=== PATIENT | female | born 1965 | race Caucasian/White ===

== ENCOUNTER 2021-05-18 10:37 | Outpatient (CLI) | payer MEDICARE, SELFPAY ==
--- NOTE | 2021-05-18 10:41 | MM_ITS ---
WS: [id number] BILATERAL DIGITAL SCREENING MAMMOGRAM WITH CAD CLINICAL INFORMATION: SCREENING HISTORY: Screening mammogram. No current complaints. COMPARISON: TECHNIQUE: Bilateral CC and MLO. FINDINGS: The breast are composed of extremely dense tissue, which can limit the detection of small underlying mass lesions. No suspicious focal mass, asymmetry, calcifications, or architectural distortion. No ev idence of malignancy. Stable clustered calcifications left breast. MM/[id number] IMPRESSION: BI-RADS: 2-Benign FOLLOW UP: 1 Year Follow-up Recommend return to annual screening mammography.
== END 2021-05-18 10:38 | disposition home or self-care (01) ==
LOC: RADSHAW 10:39
PROVIDERS: PCP Internal Medicine; Visit Provider Internal Medicine
DX: Z12.31 Encounter for screening mammogram for malignant neoplasm of breast (principal)
CPT/HCPCS: 77067

== ENCOUNTER 2022-07-02 12:43 | Outpatient (CLI) | payer MEDICARE, SELFPAY ==
--- NOTE | 2022-07-02 13:07 | MM_ITS ---
WS: [id number] BILATERAL 3D TOMOSYNTHESIS DIGITAL SCREENING MAMMOGRAPHY WITH CAD CLINICAL INFORMATION: SCREENING HISTORY: Screening mammogram. No current complaints. COMPARISON: May 18, 2021 TECHNIQUE: Bilateral CC and MLO views. FINDINGS: The breasts are composed of heterogeneous fibroglandular density tissue, which can limit the detectio n of small underlying mass lesions. No suspicious mass, asymmetry, calcifications, or architectural d istortion. No evidence of malignancy. Vascular calcification. MM/[place] [id number] IMPRESSION: BI-RADS: 2-Benign FOLLOW UP: 1 Year Follow-up Recommend return to annual screening mammography.
== END 2022-07-02 12:44 | disposition home or self-care (01) ==
LOC: RAD 12:45
PROVIDERS: PCP Internal Medicine; Visit Provider Internal Medicine
DX: Z12.31 Encounter for screening mammogram for malignant neoplasm of breast (principal)
CPT/HCPCS: 77063; 77067

== ENCOUNTER 2023-05-02 02:08 | Emergency (ER) | payer MEDICARE, SELFPAY ==
[2023-05-02] VITALS (8 sets, daily range): BP systolic 103–129; BP diastolic 62–72; PULSE 94–115; RESP 1–22; TEMP 37.9; O2SAT 95–100; BMI 20.1
--- NOTE | 2023-05-02 02:14 | XRR_ITS ---
PROCEDURE INFORMATION: Exam: XR Chest Exam date and time: 05/02/2023 2:41 AM Age: 58 years old Clinical indication: Pain; Shortness of breath; Chest pressure; Patient HX: C/O cp with SOB TECHNIQUE: Imaging protocol: Radiologic exam of the chest. Views: 1 view. COMPARISON: CT abdomen pelvis wo/w [id number] 05/22/2018 12:41 PM FINDINGS: Lungs: No CHF/pulmonary edema. The lungs appear somewhat hyperinflated, possibly related to COPD. Visible lungs appear essentially clear. Pleural spaces: No visible pneumothorax. No definite pleural fluid. Heart/Mediastinum: Heart size is within normal limits. Bones/joints: No significant acute finding. XR/XR chest 1V portable [id number] IMPRESSION: 1. No definite CHF or pneumonia. 2. Other findings discussed above.
--- NOTE | 2023-05-02 02:16 | ED_ITS ---
HPI - SOB/Dyspnea General: Chief Complaint: Shortness of Breath/Dyspnea Stated Complaint: Shortness of Breath Time Seen by Provider: 05/02/23 02:14 Source: patient and EMS Mode of arrival: EMS Limitations: no limitations History of Present Illness: HPI Narrative: 58-year-old female states that she has had some cough congestion low-grade fevers over the last 2 days states that tonight she is having some worsening shortness of breath states she feels like she cannot breathe due to her nasal congestion EMS and found her her oxygen was in the low 90s had wheezing they gave her breathing treatment Solu-Medrol in route she is feeling improved pulse ox is now 100% on room air. No vomiting or diarrhea. Associated symptoms: Deny abdominal pain, chest pain, fever(s), nausea or vomiting Review of Systems Const: Reports: body aches; Denies: fever(s), chills or change in appetite Eyes: Denies: eye discomfort ENMT: Reports: nasal congestion; Denies: throat pain or dental pain Card: Denies: chest pain Resp: Reports: dyspnea and non-productive cough GI: Denies: abdominal pain, nausea, vomiting or diarrhea Musc: Denies: neck pain or back pain Skin/Breast: Denies: rash Neuro: Denies: headache(s) PFSH ED PFSH: Medical History Constipation during Fibromyalgia Gastroesophageal reflux History of kidney stones Hyperlipidemia Osteoporosis Per patient. Not on treatment Surgical History History of appendectomy History of arthroscopic knee surgery (~1994) right History of breast biopsy History of hysterectomy (~1993) JARAD with USO. Dx: Endometriosis, Menorrhagia. Performed by Dr. Gonzales in [place], [place]. History of shoulder surgery (~1992) Left shoulder Hx of lithotripsy Several procedures Status post unilateral salpingo-oophorectomy (~1987) [place] [facility] [place] Father , age 66 from [place] Heart disease Hypertension Grandmother Diabetes maternal Social History Smoking and tobacco status: never smoked Alcohol intake: never Substance/Drug Use: never Physical Exam Const: COMMON NORMALS: patient oriented x3 HENMT: COMMON NORMALS: normocephalic and atraumatic HEAD & SCALP: normocephalic and atraumatic Eye: COMMON NORMALS: Equal, round and reactive pupils present and EOMs intact bilaterally PUPIL: Yes Equal, round and reactive pupils present Neck/C-Spine: COMMON NORMALS: full ROM and supple Chest: COMMONS NORMALS: normal inspection of the chest and normal palpation of entire chest wall Resp: COMMON NORMALS: normal respiratory effort, No retractions and No use of accessory muscles AUSCULTATION: wheezes Cardio: COMMON NORMALS: regular rhythm and No murmurs present (Cardio) RATE: tachycardic RHYTHM: regular rhythm GI: COMMON NORMALS: Normal to inspection, nondistended, normoactive bowel sounds present, Soft to palpation, non-tender and no masses PALPATION: Yes Soft to palpation Extremity: COMMON NORMALS: normal to inspection and full ROM Neuro: COMMON NORMALS: patient oriented x3, moves all extremities and no focal motor deficits Psych: COMMON NORMALS: mental status grossly normal, Normal thought process present and cooperative THOUGHT PROCESS: Normal thought process present Skin: COMMON NORMALS: no rashes or lesions noted and no wounds GENERAL SKIN EXAM: no rashes or lesions noted Course Vital Signs: Vital signs: Vital Signs Temperature 100.2 F H 05/02/23 02:10 Pulse Rate 97 05/02/23 05:43 Respiratory Rate 18 05/02/23 05:43 Blood Pressure 120/69 05/02/23 05:28 Pulse Oximetry 98 05/02/23 05:43 Oxygen Delivery Me thod Room Air 05/02/23 05:28 MDM - SOB/Dyspnea Medical Decision Making Patient presents here with cough congestion likely from COVID she is COVID-positive. She has had no hypoxia she feels better and here we will prescribe her Paxil been blood work x-ray and troponins are all normal. She is return if worsening. Lab Data 05/02/23 02:15 05/02/23 02:15 Labs/Radiology: Radiology Impressions Chest X-Ray 05/02/23 02:14 IMPRESSION: 1. No definite CHF or pneumonia. 2. Other findings discussed above. Chest CTA 05/02/23 03:30 IMPRESSION: 1. No acute pulmonary embolus. 2. Hyperinflation with areas of interstitial thickening and pleuroparenchymal scarring most noted at the lung apices. 3. Bilateral scattered areas of bronchiectasis. 4. Degenerative change of the spine with multiple mid and lower mildly wedge configured thoracic vertebrae. Laboratory Results WBC 7.44 10^3/uL (3.29-11.43) 05/02/23 02:15 RBC 4.06 10^6/uL (3.85-5.65) 05/02/23 02:15 Hgb 11.90 g/dL (11.27-16.99) 05/02/23 02:15 Hct 37.7 % (36-47) 05/02/23 02:15 MCV 92.9 fl (85-98) 05/02/23 02:15 MCH 29.3 pg (27-33) 05/02/23 02:15 MCHC 31.6 g/dL (30-55) 05/02/23 02:15 RDW 12.1 % (12.1-15.1) 05/02/23 02:15 Plt Count 212 10^3/cmm (157-399) 05/02/23 02:15 MPV 10.8 fL (7.4-10.4) H 05/02/23 02:15 Neut % (Auto) 70.2 % 05/02/23 02:15 Lymph % (Auto) 23.0 % 05/02/23 02:15 Bradford % (Auto) 5.8 % 05/02/23 02:15 Eos % (Auto) 0.5 % 05/02/23 02:15 Baso % (Auto) 0.1 % 05/02/23 02:15 Neut # (Auto) 5.22 10^3/uL (1.8-7.7) 05/02/23 02:15 Lymph # (Auto) 1.7 10^3/uL (0.8-4.8) 05/02/23 02:15 Bradford # (Auto) 0.4 10^3/uL (0.2-0.9) 05/02/23 02:15 Eos # (Auto) 0.0 10^3/uL (0.0-0.8) 05/02/23 02:15 Baso # (Auto) 0.0 10^3/uL (0.0-0.1) 05/02/23 02:15 Nucleated RBC % (auto) 0 % 05/02/23 02:15 Nucleated RBCs # 0.0 /100WBC 05/02/23 02:15 D-Dimer <= 0.27 ug/mLFEU (0-0.59) 05/02/23 03:09 Sodium 140 mmol/L (136-145) 05/02/23 02:15 Potassium 4.2 mmol/L (3.5-5.1) 05/02/23 02:15 Chloride 103 mmol/L (98-107) 05/02/23 02:15 Carbon Dioxide 26 mmol/L (22-29) 05/02/23 02:15 Anion Gap 15.2 (5-19) 05/02/23 02:15 BUN 15 mg/dL (8-23) 05/02/23 02:15 Creatinine 0.7 mg/dL (0.5-0.9) 05/02/23 02:15 GFR Calculation 85.4 mL/min (90-130) L 05/02/23 02:15 Glucose 102 mg/dL (65-115) 05/02/23 02:15 Calculated Osmolality 291 mOsm/kg (285-295) 05/02/23 02:15 Calcium 10.1 mg/dL (8.5-10.5) 05/02/23 02:15 Total Bilirubin 0.4 mg/dL (0.15-1.2) 05/02/23 02:15 AST 21 U/L (0-32) 05/02/23 02:15 ALT 13 U/L (0-33) 05/02/23 02:15 Alkaline Phosphatase 84 U/L (35-105) 05/02/23 02:15 Troponin T Baseline 6 ng/L (0-10) 05/02/23 02:15 Troponin T 120 Minute 6.00 ng/L (0-10) 05/02/23 04:20 Delta Troponin T 0 ABS# (0-10) 05/02/23 04:20 NT-Pro-B Natriuret Pep 128 pg/mL (0-125) H 05/02/23 02:15 Total Protein 7.4 g/dL (6.6-8.7) 05/02/23 02:15 Albumin 4.8 g/dL (3.5-5.2) 05/02/23 02:15 Globulin 2.6 g/dL (1.3-4.6) 05/02/23 02:15 SARS-CoV-2 Ag (Rapid) Positive (Negative) H 05/02/23 02:20 Discharge Plan Discharge Patient Disposition: Home Clinical Impression: COVID-19 Condition: Stable Prescriptions: New Paxlovid 300 mg (150 mg x 2)-100 mg tablets,dose pack See Rx Instructions .ROUTE .COMPLEX Qty: 30 0RF Rx Instructions: take TWO 150 mg tablets of nirmatrelvir with ONE 100 mg tablet of ritonavir twice daily for 5 days No Action omeprazole 20 mg capsule,delayed release(DR/EC) PO hydrocodone-acetaminophen 10-325 mg tablet PO polyethylene glycol 3350 17 gram/dose powder PO gabapentin 300 mg capsule 300 mg PO BID chlorhexidine gluconate [Peridex] 0.12 % mouthwash 15 ml buccal BID PRN (Reason: gum infection) Qty: 473 3RF estradiol [Yuvafem] 10 mcg tablet 10 mcg VAGINAL .twice weekly Qty: 8 12RF Discharge Orders: Discharge ED (Routine); Ordered 05/02/23 Ordered By: Rashida Grande Referrals: Dalila Cho MD [Primary Care Provider] - 1-3 days Discharge Diet: Advance as tolerated Discharge Activity: Resume usual activity Patient Instructions: COVID-19 (Coronavirus Disease 2019) (ED) Coding Level of Care Code ED Super[employer]ger Rep[employer] Supervisor for Imtiaz Ignacio
[2023-05-02] MEDS: acetaminophen 500 mg Tablet 1000 MG PO (02:18)
[2023-05-02] MEDS: sodium chloride 0.9% 1,000 ML 999 ML IV (02:19)
[2023-05-02 02:26] LABS: Basophils % 0.1 %; Eosinophils % 0.5 %; Hematocrit 37.7 % (36-47); Lymphocytes # 1.7 10^3/uL (0.8-4.8); Mean Corpuscular HGB Conc 31.6 g/dL (30-55); Mean Corpuscular Hemoglobin 29.3 pg (27-33); Mean Corpuscular Volume 92.9 fl (85-98); Mean Platelet Volume 10.8 fL (7.4-10.4); Monocytes # 0.4 10^3/uL (0.2-0.9); Monocytes % 5.8 %; Neutrophils # 5.22 10^3/uL (1.8-7.7); Neutrophils % 70.2 %; Nucleated Red Blood Cells % 0 %; Platelet Count 212 10^3/cmm (157-399); Red Blood Count 4.06 10^6/uL (3.85-5.65); Red Cell Distribution Width 12.1 % (12.1-15.1); White Blood Count 7.44 10^3/uL (3.29-11.43)
[2023-05-02] MEDS: albuterol 2.5 mg/3 mL Neb INHALATION (02:35)
--- NOTE | 2023-05-02 02:39 | ECG_ITS ---
[facility] Test Date: 2023-05-02 Pat Name: Марина Beckwith Department: Room: Gender: Female Solution Architect: : 1965 Requested By: Rashida Grande Order Number: [id number] Celsa MD: Mark Hughes M.D. Measurements Intervals [place] Rate: 106 P: 70 SD: 143 QRS: 73 QRSD: 86 T: 16 QT: 287 QTc: 383 Interpretive Statements SINUS TACHYCARDIA WITH OCCASIONAL SUPRAVENTRICULAR PREMATURE COMPLEXES NONSPECIFIC ST & T-WAVE ABNORMALITY ABNORMAL RHYTHM ECG No previous ECG available for comparison Electronically Signed On 05-02-2023 6:48:09 CDT by Mark Hughes M.D. [email or web address] medical [email or web address]/[id number] f
[2023-05-02 03:03] LABS: Alanine Aminotransferase 13 U/L (0-33); Albumin Level 4.8 g/dL (3.5-5.2); Alkaline Phosphatase 84 U/L (35-105); Anion Gap 15.2 (5-19); Aspartate Amino Transferase 21 U/L (0-32); Blood Urea Nitrogen 15 mg/dL (8-23); Calcium 10.1 mg/dL (8.5-10.5); Carbon Dioxide 26 mmol/L (22-29); Chloride 103 mmol/L (98-107); Globulin 2.6 g/dL (1.3-4.6); Glomerular Filtration Rate 85.4 mL/min (90-130); Glucose 102 mg/dL (65-115); NT Pro B Type Natriuretic Pept 128 pg/mL (0-125); Osmolality Calculated 291 mOsm/kg (285-295); Potassium 4.2 mmol/L (3.5-5.1); Sodium 140 mmol/L (136-145); Total Bilirubin 0.4 mg/dL (0.15-1.2); Total Protein 7.4 g/dL (6.6-8.7)
[2023-05-02 03:03] LABS: SARS Covid-2 Antigen Positive (Negative)
--- NOTE | 2023-05-02 03:30 | CTR_ITS ---
PROCEDURE INFORMATION: Exam: CTA Chest With Contrast Exam date and time: 05/02/2023 3:47 AM Age: 58 years old Clinical indication: Dyspnea; Patient HX: Ex smoker; Additional info: SOB TECHNIQUE: Imaging protocol: Computed tomographic angiography of the chest with contrast. Exam focused on the arteries. 3D rendering (Not supervised by radiologist): MIP and/or 3D reconstructed images were created by the technologist. Radiation optimization: All CT scans at this facility use at least one of these dose optimization techniques: automated exposure control; mA and/or kV adjustment per patient size (includes targeted exams where dose is matched to clinical indication); or iterative reconstruction. Contrast material: OMNI 350; Contrast volume: 80 ml; Contrast route: INTRAVENOUS (IV); REPORTING DATA: Count of CT and Cardiac NM exams in prior 12 months: This patient has received 0 known CTs and 0 known cardiac nuclear medicine studies in the 12 months prior to the current study. COMPARISON: CR (CHEST, ) 05/02/2023 2:41 AM RADIATION DOSE METRICS: Total DLP (mGy-cm): 190.5 FINDINGS: Pulmonary arteries: Normal. No pulmonary emboli. Aorta: Trace calcification at the aortic root and distribution of coronary arteries. Marked limitation for detailed assessment the ascending aorta due to motion with diameter measuring approximately 3.6 cm. Lungs: Areas of pleuroparenchymal scarring throughout both lungs most noted at the lung apices. Hyperinflation. Areas of bronchiectasis. Pleural spaces: Unremarkable. No pneumothorax. No pleural effusion. Heart: Normal right to left ventricular ratio. Lymph nodes: Small mediastinal lymph nodes. Small hilar lymph nodes largest on the right measures 1.8 cm. Subcarinal node measures 1.6 cm. Bones/joints: Degenerative change of the spine. Multiple thoracic endplate concavities. Multiple minor mid and lower thoracic wedge configured vertebrae. Superior degenerative small rolls node T7. Soft tissues: Dense breast tissue bilaterally. CT/CT angio chest PE protcl [id number] IMPRESSION: 1. No acute pulmonary embolus. 2. Hyperinflation with areas of interstitial thickening and pleuroparenchymal scarring most noted at the lung apices. 3. Bilateral scattered areas of bronchiectasis. 4. Degenerative change of the spine with multiple mid and lower mildly wedge configured thoracic vertebrae.
[2023-05-02 03:37] LABS: D Dimer <= 0.27 ug/mLFEU (0-0.59)
[2023-05-02] MEDS: iohexol 350 mg/mL 500 mL Btl (per mL) IV (04:01)
--- NOTE | 2023-05-02 04:27 | ECG_ITS ---
[facility] Test Date: 2023-05-02 Pat Name: Марина Beckwith Department: Room: Gender: Female Dinkey Dispatcher: : 1965 Requested By: Rashida Grande Order Number: [id number] Celsa MD: Mark Hughes M.D. Measurements Intervals [place] Rate: 100 P: 60 ID: [id number] QRS: 63 QRSD: 94 T: 42 QT: 351 QTc: 453 Interpretive Statements SINUS TACHYCARDIA NONSPECIFIC ST & T-WAVE ABNORMALITY Compared to ECG 05/02/2023 02:39:40 No significant changes Electronically Signed On 05-02-2023 6:49:39 CDT by Mark Hughes M.D. [email or web address] Therapeuticspascagoula hospitalAdzCentralpromedica fostoria [facility].[employer]/store/OM/[id number]
[2023-05-02 05:19] LABS: Troponin(5th) Baseline 6 ng/L (0-10)
[2023-05-02 05:20] LABS: Troponin 5 2HR Delta 0 ABS# (0-10)
[2023-05-02] MEDS: dexamethasone 10 mg/mL INJ IVP (05:24)
[2023-05-02] MEDS: HYDROcodone-acetaminophen 7.5-325 mg Tablet 1 TAB PO (05:24)
== END 2023-05-02 05:46 | disposition home or self-care (01) ==
PROVIDERS: Emergency Provider Emergency Medicine; PCP Internal Medicine
DX: U07.1 COVID-19 (principal); E78.5 Hyperlipidemia, unspecified; Z20.822 Contact with and (suspected) exposure to COVID-19
CPT/HCPCS: 71045; 71275; 80053; 83880; 84484; 85025; 85378; 87426; 93005; 94640; 96374; 99285; J1100; J7030; J7613; Q9967

== ENCOUNTER → 2025-08-31 16:11 | Outpatient (BNVA) | payer MEDICARE, SELFPAY | PROVIDERS: PCP Internal Medicine; Visit Provider Nurse Practitioner Family | DX: R35.0 Frequency of micturition (principal) | CPT/HCPCS: 81000 ==